=== PATIENT | female | born 1950 | race Caucasian/White ===

== ENCOUNTER 2025-08-13 08:53 | Outpatient (AMB) | payer MEDICARE, SELFPAY ==
--- OUTSIDE RECORDS SUMMARY | 2025-08-10 13:40 | XMS_ITS | Encounter Summary ---
Author Organization [facility] Address [address] [place] [address] Care Team Providers Care Jewel Supervisor Name Role Phone Marce Mason MD Primary Care Provider [phone] Reason for Visit * Reason Comments GERD Colon Cancer Screening * Consultation (Routine) - Authorized Specialty Diagnoses / Procedures Referred By Zahra ramirez Referred To Contact Gastroenterology Diagnoses Screen for colon cancer Marce Mason MD [address] [place] [address] Phone: tel: fax: Gastroenterology [address] [address] Phone: tel: fax: Referral ID Status Reason Start Date Expiration Date Visits Requested Visits Authorized [id number] Authorized Specialty Services Required 04/30/2025 04/30/2026 1 1 Encounter Details Date Type Department Care Team ([facility] st Contact Info) Description 08/10/2025 1:40 PM EDT Office Visit Gastroenter[address] [address] Dora Menjivar NP [address] [phone] Esophageal dysphagia (Primary Dx); Screening for colorectal cancer; Chronic constipation; History of chronic gastritis Social History Tobacco Use Types Packs/Day Years Used Date Smoking Tobacco: Former Cigarettes Q uit: 11/19/1994 Smokeless Tobacco: Never Alcohol Use Standard Drinks/Week Comments Yes 0 (1 standard drink = 0.6 oz pur e alcohol) Comments Unknown Sex and Gender Information Value Date Recorded Sex Assigned at Not on file Legal Sex Female 3:18 PM EST Gender Identity Not on file Sexual Orientation Not on file documented as of this encounter Last Filed Vital Signs Vital Sign Reading Time Taken Comments Blood Pressure 116/82 08/10/2025 1:30 PM EDT Pulse 82 08/10/2025 1:30 PM EDT Temperature - - Respiratory Rate - - Oxygen Saturation 96% 08/10/2025 1:30 PM EDT Inhaled Oxygen Concentration - - Weight 66.3 kg (146 lb 3.2 oz) 08/10/2025 1:30 P M EDT Height 162.6 cm (5' 4 ) 08/10/2025 1:30 PM EDT Body Mass Index 25.1 08/10/2025 1:30 PM EDT documented in this encounter Progress Notes * Dora Menjivar NP - 08/10/2025 1:40 PM EDT CHIEF COMPLAINT: Colonoscopy. HPI: Diamond Zhang is a 75 y.o. old female whose PMH includes adjustment disorder with mixed anxiety and depressed mood, aortic valve regurgitation, history of embolic stroke, chronic cough, degenerative joint disease, GERD, genitalis, hyperlipidemia, mild dementia, osteopenia, prediabetes, premature atrial contractions, seizure disorder, glaucoma, urge incontinence, former tobacco use and varicose veins of both lower extremities was referred by Marce Mason MD to the gastroenterology department today for evaluation of colonoscopy. Former [facility] patient. Last office visit 06/29/2023. Patient reports history of chronic gastritis that is currently well-managed with daily use of omeprazole in addition to dietary and lifestyle changes. She reports for the last 3 to 6 months, she has been experiencing difficulty swallowing which he describes as food getting stuck behind her breastbone . This is mostly common with foods such as steak. There is associated digitation of undigested food particles. She denies choking episodes. She reports chronic constipation that is well-managed with daily use of Metamucil and docusate sodium which she purchases [id number]. She reports she is also due for colonoscopy. Today, she denies fever, nausea, vomiting, odynophagia, hematemesis, abdominal pain or discomfort, loss of appetite, unintentional weight loss, change in bowel habits fromher baseline, melena or hematochezia. She denies alcohol, tobacco or marijuana use. No known first-degree family history of gastrointestinal cancer. EGD 07/06/2023: Normal examined to the upper gastritis. Likely benign gastric and gastric antrum. Resected and retrieved. Pathology: Chronic gastritis. No H. pylori. Gastric mucosal and submucosal with congestion of submucosal vessels and focal lymphoid aggregate. No neoplasia identified. Colonoscopy 04/02/2015: Normal colorectal cancer screening colonoscopy. No specimens collected. ROS: GENERAL: No malaise, significant weight loss or fever HEENT: No changes in hearing or vision, nose bleeds NECK: No lumps, goiter, pain or significant neck swelling RESPIRATORY: No cough, wheezing or shortness of breath CARDIOVASCULAR: No chest pain GI: See HPI MUSCULOSKELETAL: Chronic back pain SKIN: No lesions, rash or itching PAST MEDICAL HISTORY: Patient Active Problem List Diagnosis Adjustment disorder with mixed anxiety and depressed mood Anxiety and depression Aortic valve regurgitation History of embolic stroke Chronic cough Degenerative joint disease Esophageal reflux Genital herpes Hyperlipidemia, mixed Mild dementia ([facility] V24, [facility] V28) Mild episode of recurrent major depressive disorder ([facility] V24) Osteopenia Prediabetes Premature atrial contractions Seizure disorder ([facility] V24, [facility] V28) Unspecified glaucoma(365.9) Urge incontinence Varicose veins of both lower extremities PAST SURGICAL HISTORY: Past Surgical History: Procedure Laterality Date COLONOSCOPY 03/23/2015 : normal COLONOSCOPY 07/13/2003 : negative ESOPHAGOGASTRODUODENOSCOPY 08/10/2021 : GERD, biopsy pending OTHER SURGICAL HISTORY arthroscopy TONSILLECTOMY UPPER GASTROINTESTINAL ENDOSCOPY 07/13/2003 negative UPPER GASTROINTESTINAL ENDOSCOPY 04/12/2018 Small hiatal hernia, otherwise normal endoscopic findings on once a day PPI treatment. SOCIAL HISTORY: Social History Tobacco Use Smoking status: Former Current packs/day: 0.00 Types: Cigarettes Quit date: 11/19/1994 Years since quittin.7 Smokeless tobacco: Never Substance Use Topics Alcohol use: Yes Drug use: No FAMILY HISTORY: Family History Problem Relation Name Age of Onset Stroke Mother 80's breast ca, HTN, [place], melanoma Heart attack Father Prostate cancer Brother 61 Breast cancer Maternal Grandmother 45 Breast cancer Mother's side 46 Aunt Breast cancer Mother's side 72 Aunt Breast cancer Mother's side m. uncle 67 Uncle (Male breast cancer); also colon cancer Ovarian cancer Neg Hx MEDICATIONS: Outpatient Medications Marked as Taking for the 08/10/25 encounter (Office Visit) with Dora Menjivar NP Medication Sig Dispense Refill aspirin 81 mg EC tablet Take 1 Tablet by mouth daily. [facility] biotin 5 mg capsule See Instructions, 1 capsule daily, 0 Refills, Maintenance, 06/02/23 17:12:00 EDT, Partial fill upon patient request if the prescription is for a schedule II opioid drug. cholecalciferol (VITAMIN D-3) 5,000 Units tablet Take 1 tablet (5,000 Units total) by mouth 1 (one)time each day. DULoxetine (CYMBALTA) [address] capsule Take 1 capsule (20 mg total) by mouth 1 (one) time each day.Do not crush or chew. (Patient taking differently: Take 10 mg by mouth 1 (one) time each day. Do not crush or chew.) ezetimibe (ZETIA) 10 mg tablet Take 1 tablet (10 mg total) by mouth 1 (one) time each day. 90 tablet 1 levETIRAcetam (KEPPRA) 500 mg tablet Take 1 tablet (500 mg total) by mouth 2 (two) times a day. 90 tablet 0 magnesium oxide (MAG-OX) 400 mg (241.3 elemental magnesium) tablet Take 1 tablet (400 mg total) by mouth 1 (one) time each day. melatonin 3 mg capsule Take 3 mg by mouth at bedtime. omeprazole (PriLOSEC) [address] capsule TAKE ONE CAPSULE BY MOUTH EVERY DAY ON AN EMPTY STOMACH; WAIT 30 MINUTES THEN EAT TO ACTIVATE THE MEDICATION propranoloL (INDERAL) 20 mg tablet Take 1 tablet (20 mg total) by mouth 2 (two) times a day. 60 tablet 5 solifenacin (VESICARE) 10 mg tablet Take 1 tablet (10 mg total) by mouth 1 (one) time each day. 90 tablet 1 [DISCONTINUED] famotidine (PEPCID) 20 mg tablet TAKE 1 TABLET BY MOUTH TWICE DAILY NEEDED FOR HEARTBURN 180 tablet 0 [DISCONTINUED] simethicone (MYLICON,GAS-X) 125 mg capsule Take 1 capsule (125 mg total) by mouth 1 (one) time each day. ALLERGIES: Allergies Allergen Reactions Atorvastatin Pain Other Seasonal Acetaminophen Hives PHYSICAL EXAM: Visit Vitals BP 116/82 (BP Location: Left arm, Patient Position: Sitting) Pulse 82 Ht 1.626 m (64 ) Wt 66.3 kg (146 lb 3.2 oz) SpO2 96% BMI 25.10 kg/m?? Smoking Status Former BSA 1.71 m?? APPEARANCE: Alert and in no acute distress EYES: Conjunctiva and sclera normal. MOUTH/THROAT: No erythema, exudates or lesions noted NECK: Neck supple, no adenopathy HEART: RRR with normal S1 and S2 LUNG: Clear to auscultation ABDOMEN: soft non tender, no ascites, guarding, or rebound. RECTAL: Exam deferred NEURO: Awake, alert and forgetful SKIN: Skin color, texture, turgor normal. LABS: No results found for: WBC , HGB , HCT , MCV , PLT No results found for: ALT , AST , GGT , ALKPHOS , BILITOT IMAGING: No pertinent imaging within the last 1 month IMPRESSION: 1. Esophageal dysphagia 2. Screening for colorectal cancer 3. Chronic constipation 4. History of chronic gastritis PLAN: Diamond Zhang is a 75 y.o. old female whose PMH includes adjustment disorder with mixed anxiety and depressed mood, aortic valve regurgitation, history of embolic stroke, chronic cough, degenerative joint disease, GERD, genitalis, hyperlipidemia, mild dementia, osteopenia, prediabetes, premature atrial contractions, seizure disorder, glaucoma, urge incontinence, former tobacco use and varicose veins of both lower extremities presents for evaluation for colonoscopy. 1. Esophageal dysphagia: She was advised to cut food into small pieces, chew food thoroughly and eat slowly. She may transition to foods pending EGD. I will schedule diagnostic EGD with dilatation as needed if stricture/stenosis present. 2. Screening for colorectal cancer: History of a colonoscopy in 2014. She is due for screening colonoscopy. I reviewed colorectal cancer screening guidelines, risks and benefits. She will proceed with screening colonoscopy. Patient understands the risks of EGD/colonoscopy include infection, bleeding and/or bowel perforation with its own emergent surgery and complication. Polypectomy and/or tissue biopsy may be performedduring the procedure. 3. Chronic constipation: Well-managed with daily use of docusate sodium and Metamucil which she purchases [id number]. She was encouraged to increase dietary fiber and fluid intake, and physical activity. Continue with current bowel regimen. 4. History of chronic gastritis: This is well-managed with daily use of omeprazole. I recommend lifestyle modifications including stress reduction, elevate head while in bed, sitting upright during and after meals, avoidance of foodintake atleast less than 3 hours before bedtime and cessation of foods that potentially aggravate reflux symptoms such as coffee, chocolate, carbonated beverages, spicy foods, acidic foods and foods with high fat content. Continue taking omeprazole as directed. Follow-up after EGD/colonoscopy. Patient agrees with the above plan and understands the need to follow up as indicated. Please note, this note may have been created in part by using [employer] dictation software, and therefore, it may contain typographical and/or grammatical errors inherent in a voice recognition software program I would like to thank Marce Mason MD for the opportunity to partake in the patient's care. No orders of the defined types were placed in this encounter. AMB REFERRAL TO GASTROENTEROLOGY documented in this encounter Plan of Treatment Upcoming Encounters Date Type Department Care Team (Late st Contact Info) Description 08/31/2025 9:00 AM EDT Appointment [facility] Endoscopy [address] [place] [phone] Gray Cuba DO 175 [facility] [address] [place] [address] 09/21/2025 8:45 AM EST Office Visit Urogynecology [address] [phone] Michelle Doran MD [address] [place] [address] [address] [place] [address] 10/30/2025 10:00 AM EST Office Visit Adult Medicine [facility] - [address] [phone] Rosa Jean PA [address] [place], [place] documented as of this encounter Visit Diagnoses Diagnosis Esophageal dysphagia- Primary Dysphagia, pharyngoesophageal phase Screening for colorectal cancer Chronic constipation Unspecified constipation History of chronic gastritis documented in this encounter Discontinued Medications Medication Sig Discontinue Reason Start Date End Da te famotidine (PEPCID) 20 mg tablet TAKE 1 TABLET BY MOUTH TWICE DAILY NEEDED FOR HEARTBURN 04/21/2025 08/10/2025 simethicone (MYLICON,GAS-X) 125 mg capsule Take 1 capsule (125 mg total) by mouth 1 (one) time each day. 06/02/2023 08/10/2025 documented as of this encounter Orders Outpatient Referral Count Last Ordered Date Fir st Ordered Date AMB REFERRAL TO GASTROENTEROLOGY 1 08/10/20 25 documented in this encounter Additional Health Concerns Assessment Noted Time PHQ-9 Depression Total Score: 3 10/23/20 24 11:34 AM EST A fall risk assessment has been complete d for the patient 10/23/2024 11:33 AM EST documented as of this encounter Care Teams Jewel Supervisor Relationship Specialty Start Date End Date Marce Mason MD [address], [place] PCP - General Internal Medicine 06/08/20 documented as of this encounter
--- NOTE | 2025-08-13 09:06 | MHC.OFFVIS ---
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 Typical symptoms included a wiered feeling, a white cloudy feeling, for a few seconds, confusion, but not passing out. She was also not sure about all symptoms. She did not have anymore seizures. She was complaining of being forgetful tired and fatigued. She was also being treated for leaky cardiac valve when probably was going to have some surgery. Review of Systems Const Details: As per HPI. Physical Exam Neuro Other: Mental Status: Alert and oriented to person, place, and time. Normal attention. Normal spontaneous speech, fluency, and comprehension. Cranial Nerves: CN II: Visual bryson full to confrontation, visual acuity intact. CN III, IV, : Pupils equal, round, reactive to light and accommodation. Extraocular movements are normal. CN V: Facial sensation is normal. CN VII: Facial movements symmetrical. CN VIII: Hearing intact to bedside conversation is normal. CN IX, X: Palate elevates symmetrically. CN XI: Shoulder shrug and head turn symmetrical. CN XII: Tongue midline without atrophy or fasciculations. Motor: Bulk and tone normal in all extremities. No significant muscle weakness in arms and legs. No drift. Reflexes: Deep tendon reflexes 2+ and symmetric. Plantar response down-going bilaterally. Coordination: Jezmvj-xh-blsx and omna-jg-epna testing normal. No dysmetria. Gait and Station: No obvious gait abnormality. No ataxia or instability. Sensory: Intact to light touch, pinprick, and vibration. Romberg is negative. Extrapyramidal: Full facial expressions and blinking. No rigidity. Movements are appropriate with no tremor or abnormality. Speech: Normal; no dysarthria or tremor. 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 02/05/23.EEG at off in 2022: WN LMRI brain WO at [facility] in 2005: mild MVD CT brain WO at [facility] in 2014: mild diff cortical atrophy MRI brain WO at [facility] in 2019: mild MVD and diff mild atrophy. 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
--- OUTSIDE RECORDS SUMMARY | 2025-08-13 09:32 | XMS_ITS | Clinical Summary ---
Author Organization [facility] [address] [place] [address] Address [address] [place] [address] Phone Care Team Providers Care Bulk Tank Driver Name Role Phone Marce Mason MD Primary Care Provider [phone] Allergies Active Allergy Reactions Criticality Noted Date Comments Acetaminophen Hives Low 10/19/2005 Atorvastatin Pain 02/25/2024 Other 04/19/2011 Seasonal Medications aspirin 81 mg EC tablet Take 1 Tablet by mouth daily. [facility] Active biotin 5 mg capsule See Instructions, 1 capsule daily, 0 Refills, Maintenance, 06/02/23 17:12:00 EDT, Partial fill upon patient request if the prescription is for a schedule II opioid drug. 06/02/20 23 Active cholecalcifer ol (VITAMIN D-3) 5,000 Units tablet Take 1 tablet (5,000 Units total) by mouth 1 (one) time each day. Active magnesium oxide (MAG-OX) 400 mg (241.3 elemental magnesium) tablet Take 1 tablet (400 mg total) by mouth 1 (one) time each day. 06/02/20 23 Active melatonin 3 mg capsule Take 3 mg by mouth at bedtime. Active omeprazole (PriLOSEC) [address] capsule TAKE ONE CAPSULE BY MOUTH EVERY DAY ON AN EMPTY STOMACH; WAIT 30 MINUTES THEN EAT TO ACTIVATE THE MEDICATION 08/15/20 24 Active levETIRAcetam (KEPPRA) 500 mg tablet Take 1 tablet (500 mg total) by mouth 2 (two) times a day. 90 tablet 04/16/20 25 Active DULoxetine (CYMBALTA) [address] capsule Take 1 capsule (20 mg total) by mouth 1 (one) time each day. Do not crush or chew. Active ezetimibe (ZETIA) 10 mg tablet Take 1 tablet (10 mg total) by mouth 1 (one) time each day. 90 tablet 1 06/02/20 25 Active solifenacin (VESICARE) 10 mg tabletIndicat ions:OAB (overactive bladder) Take 1 tablet (10 mg total) by mouth 1 (one) time each day. 90 tablet 1 06/17/20 25 Active propranoloL (INDERAL) 20 mg tablet Take 1 tablet (20 mg total) by mouth 2 (two) times a day. 60 tablet 5 07/22/20 25 Active simethicone (MYLICON,GAS- X) 125 mg capsule Take 1 capsule (125 mg total) by mouth 1 (one) time each day. 06/02/20 23 025 Discontinued famotidine (PEPCID) 20 mg tablet TAKE 1 TABLET BY MOUTH TWICE DAILY NEEDED FOR HEARTBURN 180 tablet 04/21/20 25 025 Discontinued propranoloL (INDERAL) 10 mg tablet Take 1 tablet (10 mg total) by mouth 2 (two) times a day. 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 Benitez Assessment & Plan (10/23/2024 12:02 PM EST): Aortic valve regurgitation 10/20/2021 Overview (10/22/2024): 10/09 echo 1-2+ AI Assessment & Plan (06/02/2025 11:10 AM EDT): Echocardiogram from February 2025 showing mild aortic regurgitation, no evidence of aortic valve stenosis. Patient with no new or concerning symptoms. Will continue to monitor periodically for surveillance. Orders: ECG 12 lead Hyperlipidemia, mixed 01/12/2020 Assessment & Plan (06/02/2025 11:10 AM EDT): Patient's lipid panel from October 2024 showing elevated LDL cholesterol at 136 and elevated total cholesterol at 250. She was advised to continue on the Zetia. Recently, the patient realized she was not taking Zetia at all. She will begin taking this medication and will continue cholesterol surveillance with her PCP. I have reviewed with the patient the importance of a heart healthy lifestyle which includes eating a low-fat low-salt diet, getting regular exercise, maintaining a healthy weight, not smoking, and following up with routine medical care. Assessment & Plan (10/23/2024 12:02 PM EST): Orders: Lipid panel with reflex to direct LDL; Future Chronic cough 12/14/2018 Degenerative joint disease 10/23/2016 Varicose veins of both lower extremities 016 Seizure disorder ([facility] V24, [facility] V28) 12/2014 Assessment & Plan (10/23/2024 12:02 PM EST): Adjustment disorder with mixed anxiety and depre ssed mood 10/28/2010 Anxiety and depression 08/26/2007 Esophageal reflux 08/26/2007 Assessment & Plan (10/23/2024 12:02 PM EST): Unspecified glaucoma(365.9) 08/26/2007 Genital herpes 05/16/2006 Overview (10/22/2024): recurrent Osteopenia 05/16/2006 Overview (05/01/2025): As of 2010 T score in spine consistent with osteoporosis. Treated with Reclast 2010 and 2011. Bone density improved to osteopenia 2012 and fracture risk not high enough to continue treatment 05/10- tscore lumbar spine -2.0, hip -1.7. FRAX 10 year 10% 05/13 T score spine -2.0 hip -1.5 FRAX score 11% 10 year fracture risk Encounters Date Type Department Care Team Description 08/10/2025 1:40 PM EDT Office Visit Gastroenterology [facility] [address] [facility] [address] [place] [phone] Dora Menjivar NP Esophageal dysphagia (Primary Dx); Screening for colorectal cancer; Chronic constipation; History of chronic gastritis 08/10/2025 Telephone Gastroenterology [facility] [address] [facility] [address] [place] [phone] Dora Menjivar NP 07/21/2025 Telephone [facility] Cardiology [facility] [address] [facility] [address] [place] [address] Niko Santana [place] 07/02/2025 10:30 AM EDT Ancillary Procedure [facility] Cardiology [facility] [address] [place] [address] Palpitations 06/17/2025 8:45 AM EDT Office Visit Urogynecology [address] [phone] Michelle Doran MD Urge incontinence (Primary Dx); Urinary urgency; OAB (overactive bladder); Nocturia 06/02/2025 10:40 AM EDT Office Visit [facility] Cardiology [facility] [address] [facility] [address] [place] [address] Rosa Madrigal NP Aortic valve insufficiency, etiology of cardiac valve disease unspecified (Primary Dx); Hyperlipidemia, mixed; Palpitations 05/18/2025 Telephone Gastroenterology - [place] [address] [place] [address] Faustino Wilkerson MD from Last 3 Months Immunizations Name Administration Dates Next Due Influenza trivalent, 0.5mL ( Fluad) 65yo and older 08/04/2022,07/29/2021,08/06/2020,08/13 Influenza trivalent, 0.5mL, preservative free (Fluarix; FluLaval; Fluzone) ages 6mo and older (Afluria) 3 years and older 09/04/2007 Influenza, Unspecified 08/01/2023 Moderna Covid-19 Bivalent, O riginal + Ba.1 (Non-US Tradename Spikevax Bivalent) 08/25/2022 Mingxieku (ages 12 & older) Biv alent, COVID-19 08/01/2023 Mingxieku Covid-19 Bivalent, Or iginal + Ba.1 (Non-US Trademark COMIRNATY Bivalent) 08/25/2022 Mingxieku SARS-CoV-2 COVID-19, mRNA, LNP-S, preservative free 02/25/2021,02/04/2021 Pneumococcal conjugate 13 va lent (Prevnar 13, PCV13) 2mo and older 07/10/2017 Pneumococcal conjugate 20 va lent (Prevnar 20, PCV 20) 2mo and older 07/30/2024 Pneumococcal polysaccharide 23 valent (Pneumovax 23) 2yo and older 12/12/2018 RSV, bivalent, protein subun it RSVpreF, 0.5mL, Preservative Free (ABRYSVO) 60yo and older or 32 through 36 wks of 08/08/2023 Respiratory syncytial virus (RSV), unspecified 08/01/2023 Td Tetanus diptheria (Tdvax) 7yo and older 03/02/2004 Zoster recombinant (Shingrix ) 19yo and older 12/07/2020,08/05/2020 Surgical History Surgery Date Site/Laterality Comments OTHER SURGICAL HISTORY arthroscopy COLONOSCOPY 03/23/2015 : normal COLONOSCOPY 07/13/2003 : negative UPPER GASTROINTESTINAL ENDOSCOPY 07/13/2003 negative UPPER GASTROINTESTINAL ENDOSCOPY 04/12/2018 Small hiatal hernia, otherwise normal endoscopic findings on once a day PPI treatment. ESOPHAGOGASTRODUODENOSCOPY 08/10/2021 : GERD, biopsy pending TONSILLECTOMY Medical History Medical History Date Comments Osteoporosis, unspecified Unspecified glaucoma(365.9) Esophageal reflux 08/26/2007 Genital herpes, unspecified 05/16/2006 Seizure disorder ([facility] V2 4, [facility] V28) 11/20/2014 Degenerative joint disease 10/23/2016 Irritable bowel syndrome Depressive disorder Hyperlipidemia Premature atrial contractions Aortic insufficiency 10/20/202110/09 echo 1-2+ AI Esophageal thickening History of embolic stroke 06/22/202306/10 a cute expressive aphasia, aborted with TNK, negative CTA head, neck, echo Anxiety and depression 08/26/2007 Prediabetes 08/31/2023 Family History Medical History Relation Name Comments Prostate cancer Brother Heart attack Father Breast cancer Maternal Grandmother Stroke Mother 80's breast ca, HTN, [place], melanoma Breast cancer Mother's side 1 Aunt Breast cancer Mother's side 2 Aunt Breast cancer Mother's side 3 m. uncle Uncle (Male breast cancer); also colon cancer Ovarian cancer Neg Hx Relation Name Status Comments Brother Father Maternal Grandmother Mother 80's Mother's side 1 Mother's side 2 Mother's side 3 m. uncle Other uncle Social History Tobacco Use Types Packs/Day Years Used Date Smoking Tobacco: Former Cigarettes Q uit: 11/19/1994 Smokeless Tobacco: Never Tobacco Cessation:Counseling Given: Not Answered Alcohol Use Standard Drinks/Week Comments Yes 0 (1 standard drink = 0.6 oz pur e alcohol) Comments Unknown Sex and Gender Information Value Date Recorded Sex Assigned at Not on file Legal Sex Female 3:18 PM EST Gender Identity Not on file Sexual Orientation Not on file Obstetrics History Last Filed Vital Signs Vital Sign Reading Time Taken Comments Blood Pressure 116/82 08/10/2025 1:30 PM EDT Pulse 82 08/10/2025 1:30 PM EDT Temperature 35.9 C (96.7 F) 04/30/2025 9:32 AM EDT Respiratory Rate 14 04/30/2025 9:32 AM EDT Oxygen Saturation 96% 08/10/2025 1:30 PM EDT Inhaled Oxygen Concentration - - Weight 66.3 kg (146 lb 3.2 oz) 08/10/2025 1:30 P M EDT Height 162.6 cm (5' 4 ) 08/10/2025 1:30 PM EDT Body Mass Index 25.1 08/10/2025 1:30 PM EDT Plan of Treatment Upcoming Encounters Date Type Department Care Team (Late st Contact Info) Description 08/31/2025 9:[address] [facility] [address] [place] [phone] Gray Cuba DO 175 [facility] [address] [place] [address] 09/21/2025 8:45 AM EST Office Visit [facility]cology [facility] [address] [place], [place] [phone] Michelle Doran MD [address] [facility] [address] [place] [address] 10/30/2025 10:00 AM EST Office [facility] [place] [address] [place], [place] [phone] Rosa Jean PA [address] [place], [place] Health Maintenance Due Date Last Done Comments Social Influencers of Health Screening 10/28/2022 Depression Screening 11/19/2024 10/23/2024 Colorectal Cancer Screening: Colonoscopy 03/23/2025 03/23/2015 COVID-19 Vaccine ( season) 2025 07/30/2024, 08/01/2023, 08/25/2022, Additional history exists Breast Cancer Screening 10/01/2025 10/01/20 23, 09/25/2022, 09/20/2021, Additional history exists Falls Risk Assessment 10/23/2025 10/23/2024, 024 Medicare Annual Wellness Visit 10/23/2025 10/23/2024 Cholesterol Screening (Lipid Panel) 10/23/2029 10/23/2024, 02/21/2024 DTaP,Tdap,and Td Vaccines (3 - Td or Tdap) 04/30/2035 04/30/2025, 03/02/2004 Osteoporosis Screening (Bone Density Screening) 04/30/2035 04/30/2025, 05/16/2022, 06/14/2018 Hepatitis C Screening Completed 11/20/2014 Zoster Vaccines Completed 12/07/2020, 08/05/2020 RSV Immunization Patients Under 20 months Aged Out 08/01/2023 No longer eligible based on patient's age to complete this topic RSV Immunization Adult Patients Completed 08/08/2023, 08/01/2023 Pneumococcal Vaccine: 50+ Years Completed 07/30/2024, 12/12/2018, 07/10/2017 Influenza Vaccine Completed 08/03/2025, , 08/04/2022, Additional history exists HIB Vaccines Aged Out No longer eligi ble based on patient's age to complete this topic HPV Vaccines Aged Out No longer eligi ble based on patient's age to complete this topic Hepatitis A Vaccines Aged Out No long er eligible based on patient's age to complete this topic Hepatitis B Vaccines Aged Out No long er eligible based on patient's age to complete this topic IPV Vaccines Aged Out No longer eligi ble based on patient's age to complete this topic MMR Vaccines Aged Out No longer eligi ble based on patient's age to complete this topic Meningococcal ACWY Vaccine Aged Out N o longer eligible based on patient's age to complete this topic Meningococcal B Vaccine Aged Out No l onger eligible based on patient's age to complete this topic Varicella Vaccines Aged Out No longer eligible based on patient's age to complete this topic Procedures Procedure Name Priority Date/Time Associated Diagnosis Comments CARDIAC HOLTER MONITOR (REPORT GENERATED IN HOUSE) Routine 07/02/2025 10:33 AM EDT Palpitations ECG 12-LEAD Routine 06/02/2025 11:10 AM EDT Aortic valve insufficiency, etiology of cardiac valve disease unspecified BD BONE DENSITY DXA AXIAL SKELETON Routine 04/30/2025 3:07 PM EDT Osteopenia, unspecified location Menopause LIPID PANEL WITH REFLEX TO DIRECT LDL Routine 10/23/2024 11:43 AM EST Hyperlipidemia, mixed SCREENING MAMMOGRAPHY BI 2-VIEW BREAST INC CAD Routine 10/01/2023 7:16 PM EST Encounter for screening mammogram for malignant neoplasm of breast HM COLONOSCOPY Routine 03/23/2015 HEPATITIS C SCREENING Routine 11/20/2014 from Last 3 Months or Most Recently Relevant to Health Maintenance Results * CARDIAC HOLTER MONITOR (REPORT GENERATED IN HOUSE) (07/02/2025 10:33 AM EDT) Anatomical Region Laterality Modality Cardiac Diagnost ic Narrative 07/06/2025 6:38 PM EDT [facility] DI[facility]NOSTIC TESTING DEPARTMENT [address] [place] [address], [id number] [address] TEL: FAX: Type of Test: 48 Hour Holter Monitor Date of Test: 07/02/2025 Ordering Provider: Rosa Madrigal NP Reason for Test: Palpitations; Dizziness Impression: 1: Normal Sinus Rhythm and episodes of Sinus Arrhythmia. 2: Frequent PACs. Rare atrial pairs and atrial bi/trigeminy. 3: Rare PVCs. 4: No significant pause noted, longest R-R was 1.3 seconds at 2:45 PM. 5: Diary returned with symptoms of palpitations, lightheadedness, shortness of breath, dizziness, and arm pains noted. EKG at those times showed Normal Sinus Rhythm, a few episodes of Sinus Tachycardia, frequent PACs, and rare atrial bi/trigeminy. Heart rates were in the range of 62-118 bpm. Rosa Madrigal NP [facility] C[facility] PROCEDURES Final Result * ECG 12 lead (06/02/2025 11:10 AM EDT) Ventricular Rate ECG 64 BPM GEMUSE Atrial Rate 64 BPM GEMUSE P-R Interval 130 ms GEMUSE QRS Duration 72 ms GEMUSE Q-T Interval 414 ms GEMUSE QTc 427 ms GEMUSE P Wave [place] 51 degrees GEMUSE T [place] 18 degrees GEMUSE ECG Interpretation Sinus rhythm with Premature atrial complexes Otherwise normal ECG When compared with ECG of 17-SEP-2021 16:09, Premature atrial complexes are now Present Confirmed by MACK SELBY ([id number]) on 06/02/2025 1:54:26 PM GEMUSE 06/02/2025 10:2 9 AM EDT 06/02/2025 1:54 PM EDT us Rosa Madrigal NP ECG ORDERABLES Edited Result - Final GEMUSE * BD Bone Density DXA Axial Skeleton (04/30/2025 3:07 PM EDT) Anatomical Region Laterality Modality Wrist, Hip, L-spine Bone Densito metry 04/30/2025 3:09 PM EDT Impressions 04/30/2025 3:10 PM EDT Impression: This patient is considered to have osteopenia by WHO criteria. This patient has a 11% risk of major osteoporotic fracture and a 2.2% risk of hip fracture over the next 10 years. (World Health Organization Fracture Risk Assessment) The [facility] Department of Internal Medicine recommends using National Osteoporosis Foundation (NOF) guidelines in treatment decisions related to osteoporosis. NOF guidelines suggest considering treatment for postmenopausal women and men aged 50 or older presenting with the following: History of hip or vertebral fracture. T-score = -2.5 (DXA) at the femoral neck, total hip, or spine, after appropriate evaluation to exclude secondary causes. Low bone mass (T-score between -1.0 and -2.5 at the femoral neck or spine) AND a 10-year probability of a hip fracture = 3% OR a 10-year probability of a major osteoporosis-related fracture = 20% based on the [place]-adapted WHO algorithm Please note that all treatment decisions require clinical judgment and consideration of individual patient factors, including patient preferences, co-morbidities, previous drug use, risk factors not captured in the FRAX model (e.g., frailty, falls, vitamin D deficiency, increased bone turnover, interval significant decline in bone density) and possible under- or over-estimation of fracture risk by FRAX. Optional alternative screening schedule based on joe Vail., [facility] December 07, 2011 for patients with osteopenia (based on hip BMD T-score) is as follows: * advanced osteopenia (T scores -2.00 to -2.49), BMD testing every year * moderate osteopenia (T scores -1.50 to -1.99), BMD testing every 5 years mild osteopenia or normal BMD (T scores -1.50 and higher), BMD testing every 15 years -------- FINAL REPORT -------- Dictated By: Jaida Knox Dictated Date: 04/30/2025 15:09 ET Assigned Physician: Jaida Knox Reviewed and Electronically Signed By: Jaida Knox Signed Date: 04/30/2025 15:10 ET Workstation ID: [id number] Transcribed By: Self Edit Transcribed Date: 04/30/2025 15:09 ET Narrative 04/30/2025 3:10 PM EDT BONE DENSITY (DEXA) Lumbar Spine T-score is -2.0. (SD relative to 20-29 y/o adult) Z-score is 0.4. (SD relative to age matched peers) This is considered osteopenia by WHO criteria. Left Hip T-score is -1.5. Z-score is 0.5. This is considered osteopenia by WHO criteria. Procedure Note Jaida Knox MD - 04/30/2025 BONE DENSITY (DEXA) Lumbar Spine T-score is -2.0. (SD relative to 20-29 y/o adult) Z-score is 0.4. (SD relative to age matched peers) This is considered osteopenia by WHO criteria. Left Hip T-score is -1.5. Z-score is 0.5. This is considered osteopenia by WHO criteria. IMPRESSION: Impression: This patient is considered to have osteopenia by WHO criteria. Thispatient has a 11% risk of major osteoporotic fracture and a 2.2% risk ofhip fracture over the next 10 years. (World Health Organization FractureRisk Assessment) [facility] Department of Internal Medicine recommendsusing National Osteoporosis Foundation (NOF) guidelines in treatmentdecisions related to osteoporosis. NOF guidelines suggest consideringtreatment for postmenopausal women and men aged 50 or older presentingwith the following: History of hip or vertebral fracture. T-score = -2.5 (DXA) at the femoral neck, total hip, or spine, afterappropriate evaluation to exclude secondary causes. Low bone mass (T-score between -1.0 and -2.5 at the femoral neck or spine)AND a 10-year probability of a hip fracture = 3% OR a 10-year probabilityof a major osteoporosis-related fracture = 20% based on the [place]-adapted WHOalgorithm Please note that all treatment decisions require clinical judgment andconsideration of individual patient factors, including patientpreferences, co-morbidities, previous drug use, risk factors not capturedin the FRAX model (e.g., frailty, falls, vitamin D deficiency, increasedbone turnover, interval significant decline in bone density) and possibleunder- or over-estimation of fracture risk by FRAX. Optional alternative screening schedule based on [facility]ail., [facility] for patients with osteopenia (based on hip BMD T-score)is as follows: * advanced osteopenia (T scores -2.00 to -2.49), BMD testing every year * moderate osteopenia (T scores -1.50 to -1.99), BMD testing every 5years mild osteopenia or normal BMD (T scores -1.50 and higher), BMD testingevery 15 years -------- FINAL REPORT -------- Dictated By: Jaida Knox Dictated Date: 04/30/2025 15:09 ET Assigned Physician: Jaida Knox Reviewed and Electronically Signed By: Jaida Knox Signed Date: 04/30/2025 15:10 ET Workstation ID: [id number] Transcribed By: Self Edit Transcribed Date: 04/30/2025 15:09 ET Marce Mason MD [facility] DXA PROCEDURES Final Result * (ABNORMAL) Lipid panel with reflex to direct LDL (10/23/2024 11:43 AM EST) [facility] Cholesterol 250(H) 0 - 200 mg/dL LAB CHEMISTRY METHOD 10/23/2024 3:07 PM EST [facility] Triglycerides 227(H) 0 - 150 mg/dL LAB CHEMISTRY METHOD 10/23/2024 3:07 PM [facility] HDL 69 >=40 mg/dL LAB CHEMISTRY METHOD 10/23/2024 3:07 PM [facility] LDL Calculated 136(H) 0 - 100 mg/dL LAB CHEMISTRY METHOD 10/23/2024 3:07 PM [facility] VLDL Cholesterol [place] 45.4 mg/dL LAB CHEMISTRY METHOD 10/23/2024 3:07 PM [facility] Non HDL Chol. (LDL+VLDL) 181(H) <145 mg/dL LAB CHEMISTRY METHOD 10/23/2024 3:07 PM [facility] Chol/HDL Ratio 3.6 0.0 - 4.4 LAB CHEMISTRY METHOD 10/23/2024 3:07 PM [facility] Blood Venous blood specimen / Unknown Venipuncture / Unknown 10/23/2024 11:43 AM EST 10/23/2024 11:43 AM EST us Marce Mason MD LAB BLOOD ORDERABLES Final Resul t [facility] [address] [place] [address], * SCREENING MAMMOGRAPHY BI 2-VIEW BREAST INC CAD (10/01/2023 7:16 PM EST) Anatomical Region Laterality Modality Radiographic Lian ging 09/25/2022 6:51 PM EST Narrative 10/02/2023 3:13 PM EST This is a summary report. The complete report is available in the patient's medical record. If you cannot access the medical record, please contact the sending organization for a detailed fax or copy. BILATERAL 3D DIGITAL SCREENING MAMMOGRAM History: Routine screening. No current breast complaints. Family history of breast cancer in grandmother Comparison: Multiple priors dating back to 07/16/2019 Technique: Bilateral full-field digital 3D mammography was performed using standard CC and MLO projections CAD was used to evaluate this mammogram. Findings: Density: There are scattered areas of fibroglandular density-B RIGHT: No suspicious masses, groups of microcalcification or areas of architectural distortion identified. Stable typically benign parenchymal asymmetries LEFT: No suspicious masses, groups of microcalcifications or areas of architectural distortion identified. Stable typically benign parenchymal asymmetries IMPRESSION: : 1. No mammographic evidence of malignancy. BI-RADS Category 2 benign findings Recommendation: Routine annual screening mammography is recommended Procedure Note Kole Martinez MD - 12/25/2023 This is a summary report. The complete report is available in thepatient's medical record. If you cannot access the medical record, pleasecontact the sending organization for a detailed fax or copy. BILATERAL 3D DIGITAL SCREENING MAMMOGRAM History: Routine screening. No current breast complaints. Family historyof breast cancer in grandmother Comparison: Multiple priors dating back to 07/16/2019 Technique: Bilateral full-field digital 3D mammography was performed usingstandard CC and MLO projections CAD was used to evaluate this mammogram. Findings: Density: There are scattered areas of fibroglandular density-B RIGHT: No suspicious masses, groups of microcalcification or areas ofarchitectural distortion identified. Stable typically benign parenchymalasymmetries LEFT: No suspicious masses, groups of microcalcifications or areas ofarchitectural distortion identified. Stable typically benign parenchymalasymmetries IMPRESSION: : 1. No mammographic evidence of malignancy. BI-RADS Category 2 benign findings Recommendation: Routine annual screening mammography is recommended Marce Mason MD IMG XR PROCEDURES Final Result * Colonoscopy (03/23/2015) Colonoscopy no interpretation , abstracted Anatomical Region Laterality Modality Other Historical Provider HEALTH MAINTENANCE Final Result * Hepatitis C Screening (11/20/2014) Hepatitis C Screening abstracted Historical Provider HEALTH MAINTENANCE Final Result from Last 3 Months or Most Recently Relevant to Health Maintenance Insurance [employer] MEDICARE ADVANTAGE Advance Directives Documents on File Type Date Recorded Patient Self Storage Manager Expl anation Health Care Decision (hx) 11/18/2014 AD PORTER DIRECTIVE Health Care Decision (hx) 11/18/2014 AD PORTER DIRECTIVE Health Care Decision (hx) 11/18/2014 AD PORTER DIRECTIVE Health Care Decision (hx) 11/18/2014 AD PORTER DIRECTIVE Health Care Decision (hx) 11/18/2014 AD PORTER DIRECTIVE Health Care Decision (hx) 11/18/2014 AD PORTER DIRECTIVE Health Care Decision (hx) 11/18/2014 AD PORTER DIRECTIVE Health Care Decision (hx) 11/18/2014 AD PORTER DIRECTIVE Health Care Decision (hx) 11/18/2014 AD PORTER DIRECTIVE Health Care Decision (hx) 11/18/2014 AD PORTER DIRECTIVE Health Care Decision (hx) 11/18/2014 AD PORTER DIRECTIVE Health Care Decision (hx) 11/18/2014 AD PORTER DIRECTIVE Health Care Decision (hx) 11/18/2014 AD PORTER DIRECTIVE Health Care Decision (hx) 11/16/2014 AD PORTER DIRECTIVE Health Care Decision (hx) 11/16/2014 AD PORTER DIRECTIVE Health Care Decision (hx) 11/16/2014 AD PORTER DIRECTIVE Health Care Decision (hx) 11/16/2014 AD PORTER DIRECTIVE Health Care Decision (hx) 11/16/2014 AD PROTER DIRECTIVE Health Care Decision (hx) 11/16/2014 AD PORTER DIRECTIVE Health Care Decision (hx) 11/16/2014 AD PORTER DIRECTIVE Health Care Decision (hx) 11/16/2014 AD PORTER DIRECTIVE Health Care Decision (hx) 11/16/2014 AD PORTER DIRECTIVE Health Care Decision (hx) 11/16/2014 AD PORTER DIRECTIVE Health Care Decision (hx) 11/16/2014 AD PORTER DIRECTIVE Health Care Decision (hx) 11/16/2014 AD PORTER DIRECTIVE Health Care Decision (hx) 11/16/2014 AD PORTER DIRECTIVE Care Teams Bulk Tank Driver Relationship Specialty Start Date End Date Marce Mason MD [address] [place] [phone] PCP - General Internal Medicine 06/08/20
--- OUTSIDE RECORDS SUMMARY | 2025-08-13 09:32 | XMS_ITS ---
Author Name [facility] Organization Unknown History of Medication Use Medication Directions Dispensed Refills Start Date End Date Stat us nitrofurantoin, macrocrystal-monohydra te, (MACROBID) 100 mg capsule Take 1 capsule (100 mg total) by mouth 2 (two) times a day for 5 days. 12/18/2024 active estradioL (ESTRACE) 0.01 % (0.1 mg/gram) vaginal cream Insert 0.5 g into the vagina 1 (one) time each day. Please place 0.5g (a pea-sized amount) on your finger and place inside the vagina for 2 weeks at night, and then twice a week at night 12/16/2024 active solifenacin (VESICARE) 5 mg tablet Take 1 tablet (5 mg total) by mouth 1 (one) time each day. Swallow tablet whole; do not crush, chew, or split. 12/16/2024 active levETIRAcetam (KEPPRA) 500 mg tablet Take 1 tablet (500 mg total) by mouth 2 (two) times a day. 10/23/2024 active ezetimibe (ZETIA) 10 mg tablet TAKE 1 TABLET BY MOUTH DAILY. REPLACES ATORVASTATIN 08/15/2024 active omeprazole (PriLOSEC) [address] capsule TAKE ONE CAPSULE BY MOUTH EVERY DAY ON AN EMPTY STOMACH; WAIT 30 MINUTES THEN EAT TO ACTIVATE THE MEDICATION 08/15/2024 active famotidine (PEPCID) 20 mg tablet TAKE 1 TABLET BY MOUTH TWICE DAILY NEEDED FOR HEARTBURN 06/26/2024 active sertraline (ZOLOFT) 100 mg tablet 1.5 tablets (150 mg total) 1 (one) time each day. 04/21/2024 active biotin 5 mg capsule See Instructions, 1 capsule daily, 0 Refills, Maintenance, 06/02/23 17:12:00 EDT, Partial fill upon patient request if the prescription is for a schedule II opioid drug. 06/02/2023 active magnesium oxide (MAG-OX) 400 mg (241.3 elemental magnesium) tablet Take 1 tablet (400 mg total) by mouth 1 (one) time each day. 06/02/2023 active simethicone (MYLICON,GAS-X) 125 mg capsule Take 1 capsule (125 mg total) by mouth 1 (one) time each day. 06/02/2023 active aspirin 81 mg EC tablet Take 1 Tablet by mouth daily. [facility] active cholecalciferol (VITAMIN D-3) 5,000 Units tablet Take 1 tablet (5,000 Units total) by mouth 1 (one) time each day. active melatonin 3 mg capsule Take 3 mg by mout h at bedtime. active Allergies Allergen Reaction Severity Comment Documented Date Source Statu s ATORVASTATIN PAIN 02/25/2024 [facility] activ e OTHER Seasonal 04/19/2011 [facility] active ACETAMINOPHEN HIVES 10/19/2005 [facility] acti ve Problems Problem Status Onset Date Problem Type Date of Resoluti on Source Hyperlipidemia, mixed active 2020-01-12 ProblemAct [facility] Varicose veins of both lower extremities active 2016-09-11 ProblemAct [facility] Urge incontinence active 2024-08-26 ProblemAct [facility] Mild dementia active 2023-04-21 ProblemAct [facility] Aortic valve regurgitation active 2021-10-20 ProblemAct [facility] Seizure disorder active 2014-11-20 ProblemAct [facility] Genital herpes active 2006-05-16 ProblemAct [facility] Unspecified glaucoma(365.9) active 2007-08-26 ProblemAct [facility] Adjustment disorder with mixed anxiety and depressed mood active 2010-10-28 ProblemAct [facility] Anxiety and depression active 2007-08-26 ProblemAct [facility] Degenerative joint disease active 2016-10-23 ProblemAct [facility] Premature atrial contractions active 2024-09-08 ProblemAct [facility] Chronic cough active 2018-12-14 ProblemAct [facility] Prediabetes active 2023-08-31 ProblemAct [facility] History of embolic stroke active 2023-06-22 ProblemAct [facility] Esophageal reflux active 2007-08-26 ProblemAct [facility] Mild episode of recurrent major depressive disorder active 2024-08-26 ProblemAct [facility] Osteopenia active 2006-05-16 ProblemAct [facility] Immunizations Vaccine Date Source Lot Number Status Influenza, Unspecified 08/01/2023 [facility] co mpleted Pfizer (ages 12 & older) Biv alent, COVID-19 08/01/2023 [facility] completed Respiratory syncytial virus (RSV), unspecified 08/01/2023 [facility] completed Moderna Covid-19 Bivalent, O riginal + Ba.1 (Non-US Tradename Spikevax Bivalent) 08/25/2022 [facility] completed Pfizer Covid-19 Bivalent, Or iginal + Ba.1 (Non-US Trademark COMIRNATY Bivalent) 08/25/2022 [facility] [id number] completed Influenza trivalent, 0.5mL ( Fluad) 65yo and older 08/04/2022 [facility] completed Influenza trivalent, 0.5mL ( Fluad) 65yo and older 07/29/2021 [facility] completed Pfizer SARS-CoV-2 COVID-19, mRNA, LNP-S, preservative free 02/25/2021 [id number] Pfizer SARS-CoV-2 COVID-19, mRNA, LNP-S, preservative free 02/04/2021 [facility] [id number] completed Zoster recombinant (Shingrix ) 19yo and older 12/07/2020 [facility] [id number] completed Influenza trivalent, 0.5mL ( Fluad) 65yo and older 08/06/2020 [facility] [id number] completed Zoster recombinant (Shingrix ) 19yo and older 08/05/2020 [facility] completed Influenza trivalent, 0.5mL ( Fluad) 65yo and older 08/13/2019 [facility] completed Pneumococcal polysaccharide 23 valent (Pneumovax 23) 2yo and older 12/12/2018 [facility] [id number] com pleted Pneumococcal conjugate 13 va lent (Prevnar 13, PCV13) 2mo and older 07/10/2017 [facility] [id number] complet ed Influenza trivalent, 0.5mL, preservative free (Fluarix; FluLaval; Fluzone) ages 6mo and older (Afluria) 3 years and older 09/04/2007 [facility] completed Td Tetanus diptheria (Tdvax) 7yo and older 03/02/2004 [facility] completed
--- OUTSIDE RECORDS SUMMARY | 2025-08-13 09:32 | XMS_ITS | Encounter Summary ---
Author Organization [facility] Address [address] [place] [address] Care Team Providers Care Oracle Wms Consultant Name Role Phone Marce Mason MD Primary Care Provider [phone] Encounter Details Date Type Department Care Team (Late st Contact Info) Description 08/10/2025 Telephone Gastroenterology - [place] [address] [place] [phone] Dora Menjivar NP 175 [facility] [address] [place] [address] Social History Tobacco Use Types Packs/Day Years [...] on file documented as of this encounter Progress Notes * Yaritza Law MA - 08/11/2025 8:44 AM EDT SCHEDULED * Dora Menjivar NP - 08/10/2025 4:56 PM EDT Please schedule diagnostic EGD for dysphagia and screening colonoscopy next available. Thank you. documented in this encounter Plan of Treatment Upcoming Encounters Date Type Department Care Team (Late st Contact Info) Description 08/31/2025 9:[address] [facility] [address] [place] [phone] [place], 175 [facility] [address] [place] [address] 09/21/2025 8:45 AM EST Office Visit [place]cology [facility] [address] [place], [place] [phone] Michelle Doran MD [address] [place] [address] [address] [place] [address] 10/30/2025 10:00 AM EST Office Visit [facility] [place] [address] [place], [place] [phone] Rosa Jean PA [address] [place], [place] documented as of this encounter Visit Diagnoses Not on filedocumented in this encounter Additional Health Concerns Assessment Noted Time PHQ-9 Depression Total Score: 3 10/23/20 24 11:34 AM EST A fall risk assessment has been complete d for the patient 10/23/2024 11:33 AM EST documented as of this encounter Care Teams Oracle Wms Consultant Relationship Specialty Start Date End Date Marce Mason MD [address] [place], [place] PCP - General Internal Medicine 06/08/20 documented as of this encounter
== END 2025-08-13 09:20 | disposition home or self-care (01) ==
LOC: HO.HSM 08:53
PROVIDERS: Visit Provider Psychiatry & Neurology Neurology
DX: G40.909 Epilepsy, unspecified, not intractable, without status epilepticus (principal); F03.A0 Unspecified dementia, mild, without behavioral disturbance, psychotic disturbance, mood disturbance, and anxiety
CPT/HCPCS: 99214

== ENCOUNTER 2025-08-13 08:53 | Outpatient (REF) | payer MEDICARE, SELFPAY ==
[2025-08-13 11:05] LABS: Folate 3.9 ng/mL (> or = 4.0); Vitamin B12 251 pg/mL (200-900)
== END 2025-08-13 08:54 | disposition home or self-care (01) ==
LOC: HO.LAB 08:53
PROVIDERS: PCP Internal Medicine; Visit Provider Psychiatry & Neurology Neurology
DX: G40.909 Epilepsy, unspecified, not intractable, without status epilepticus (principal); F03.A0 Unspecified dementia, mild, without behavioral disturbance, psychotic disturbance, mood disturbance, and anxiety
CPT/HCPCS: 36415; 82607; 82746; 99212